=== PATIENT | male | born 2005 | race Caucasian/White ===

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

== ENCOUNTER 2025-07-07 09:25 | Emergency (ER) | payer BC, SELFPAY ==
[2025-07-07] VITALS (7 sets, daily range): BP systolic 99–120; BP diastolic 59–82; PULSE 64–98; RESP 17–20; TEMP 36.7; O2SAT 98–100
--- NOTE | ~2025-07-07 | XR_ITS ---
EXAMINATION: XR chest 2V 07/07/2025 10:41 INDICATION: Syncope PROCEDURE: 2 view chest COMPARISON: No prior studies for comparison. FINDINGS: The lungs are clear. The cardiomediastinal silhouette is within normal limits. There are no pleural effusions. There is no pneumothorax suspected. IMPRESSION: 1: NO ACUTE CARDIOPULMONARY DISEASE. Reviewed, dictated and finalized at location O.
--- NOTE | ~2025-07-07 | CT_ITS ---
EXAMINATION: CT BRAIN W/O DATE: 07/07/2025 10:29 INDICATION: Head injury. TECHNIQUE: Computed tomography (CT) of the head was performed without intravenous contrast. The dose-length product was 681.00 mGy-cm. Automated exposure control and iterative reconstruction technique were employed. COMPARISON: No prior studies for comparison. FINDINGS: Normal brain parenchymal volume for age. Normal dubose-white differentiation. No acute intracranial hemorrhage, infarction, mass or mass effect. No ventriculomegaly or midline shift. Midline sagittal images demonstrate a normal corpus callosum, craniovertebral junction and sella turcica. Basilar cisterns are patent. Paranasal sinuses and mastoids are pneumatized. No depressed skull fractures. IMPRESSION: 1. No acute intracranial abnormality. Reviewed, dictated and finalized at location O.
--- NOTE | 2025-07-07 09:34 | ECG_ITS ---
Test Date: 2025-07-07 09:41:07 Measurements Intervals [place] Rate: 72 P: 57 AK: 146 QRS: 84 QRSD: 92 T: 56 QT: 346 QTc: 379 Interpretive Statements SINUS RHYTHM WITH SINUS ARRHYTHMIA INCOMPLETE RIGHT BUNDLE BRANCH BLOCK BORDERLINE ECG No previous ECG available for comparison Electronically Signed On 07-07-2025 15:09:05 CDT by Luís Winter D.O.
[2025-07-07 09:52] LABS: Hematocrit 46.8 % (42.0-52.0); Hemoglobin 16.6 g/dL (14.0-18.0); Immature Granulocyte Percent A 0.5 % (0-0.5); Lymphocytes Absolute Auto 1.86 K/mm3 (0.9-3.2); Mean Corpuscular HGB Conc 35.5 g/dl (32-36); Mean Corpuscular Hemoglobin 30.0 pg (26-34); Mean Corpuscular Volume 84.5 fl (80-100); Nucleated Red Blood Cells Absolute Auto 0.000 K/mm3 (0.0-0.012); Nucleated Red Blood Cells Perc 0.0 % (0.0-0.2); Platelet Count Result 229 k/mm3 (150-375); Red Blood Count 5.54 M/mm3 (4.6-6.20); White Blood Count 7.4 K/mm3 (4.5-10.0)
[2025-07-07 10:06] LABS: Alanine Aminotransferase 28 U/L (6-50); Albumin Level 4.8 g/dL (3.5-5.1); Alkaline Phosphatase 94 U/L (38-126); Anion Gap 9 mmol/L (4-12); Aspartate Amino Transferase 32 U/L (17-59); Bilirubin,Total 0.9 mg/dL (0.2-1.3); Blood Urea Nitrogen 13 mg/dL (9-20); Calcium 9.9 mg/dL (8.4-10.2); Carbon Dioxide 25 mmol/L (22-30); Chloride 103 mmol/L (98-107); Estimated CRCL calculation 99 ml/min; Estimated Glomerular Filt Rate > 60; Glucose 107 mg/dL (65-110); Potassium 3.9 mmol/L (3.4-5.0); Sodium 137 mmol/L (137-145); Total Protein 7.7 g/dL (6.3-8.2)
--- OUTSIDE RECORDS SUMMARY | 2025-07-07 10:10 | XMS_ITS | Clinical Summary ---
Author Organization [facility] Address [address] [place] [address] Care Team Providers Care Commercial Instructor Supervisor Name Role Phone Shoaib Funez MD Primary Care Provider [phone] Allergies Active Allergy Reactions Criticality Noted Date Comments Fluoxetine Other (see comment) 07/21/2022 Suicidal ideation Medications No known medications Active Problems Problem Noted Date Diagnosed Date ADHD (attention deficit hype ractivity disorder), inattentive type 09/11/2019 Overview (07/21/2022): 09/11/19 Metadate CD 20 mg po q AM, RTC 1 month 10/25/19 Metadate CD 30 mg po q AM, RTC 3 month 11/27/2019 Concerta 36 mg po q AM, RTC 3 months (changed due to formulary coverage) 03/31/2020 Concerta 36 mg po q AM, RTC 3 months Immunizations Immunization Administration Dates Next Due Dtap (Acel-Immune) 09/22/2009, 6,2005,2005,2004 HPV GARDASIL 9-VALENT 06/29/2018 Hepatitis A (Generic) 08/10/2006,01/31/2006 Hepatitis B 2005,2005,2005 ,2005 Hib (Generic) 05/09/2006,2005,2005 ,2005 Influenza (Generic) 08/02/2011, 0,08/15/2010,11/21/2006,2004 MMR (MMRII) 08/02/2011,01/31/2006 Meningococcal (MenQuadfi) 07/26/2023 Meningococcal (Menactra) 06/24/2017 Pneumococcal (Prevnar 13) 05/09/2006,2005, 2005,2005 Polio Opv (Generic) 08/02/2011,2005,2004,2005 Tdap (Generic) 04/05/2017 Varicella (Varivax) 09/22/2009,01/31/2006 Family History Medical History Relation Comments Hypertension Maternal Grandmother Cancer Mother Relation Status Comments Maternal Grandmother Mother Social History Tobacco Use Types Packs/Day Years Used Date Smoking Tobacco: Never Passive Smoke Exposure: Never Smokeless Tobacco: Never Tobacco Cessation:Counseling Given: No PHQ-2 Answer Date Recorded Patient Health Questionnaire-2 Score 3 06/23/2023 Sex and Gender Information Value Date Recorded Sex Assigned at Not on file Legal Sex Male 4:49 PM CDT Gender Identity Not on file Sexual Orientation Not on file Last Filed Vital Signs Vital Sign Reading Time Taken Comments Blood Pressure 129/76 10/27/2023 3:07 PM [employer] DEVELOPER Pulse 80 10/27/2023 3:07 PM [employer] DEVELOPER Temperature 36.7 C (98.1 F) 10/27/2023 3:07 PM [employer] C DEVELOPER Respiratory Rate 16 10/27/2023 3:07 PM [employer] DEVELOPER Oxygen Saturation 99% 10/27/2023 3:07 PM [employer] C DEVELOPER Inhaled Oxygen Concentration - - Weight 64.4 kg (142 lb) 10/27/2023 3:07 PM [employer] DEVELOPER Height 170.8 cm (5' 7.25) 10/27/2023 3:07 PM CS T Body Mass Index 22.08 10/27/2023 3:07 PM [employer] C DEVELOPER Plan of Treatment Health Maintenance Due Date Last Done Comments HPV Vaccines (2 - Male 2-dose series) 12/30/2018 06/29/2018 Meningococcal B Vaccine (1 of 2 - Standard) 2021 Annual Physical 06/23/2024 06/23/2023 COVID-19 Vaccine (1 - season) 2024 PHQ-2 (Physician Heaters) 11/14/2024 06/23/2023 DTaP, Tdap and Td Vaccines (7 - Td or Tdap) 04/05/2027 04/05/2017, 09/22/2009, 05/09/2006, Additional history exists Hepatitis C 06/23/2053 Postponed from 2023 (Patient Refused) Hepatitis B Vaccines Completed 2005, 2005, 2005, Additional history exists Pneumococcal Vaccine: Pediatrics (0 to 5 Years) and At-Risk Patients (6 to 49 Years) Completed 05/09/2006, 2005, 2005, Additional history exists Meningococcal Vaccine Completed 07/26/2023, 017 RSV Immunizations Under 20 Months Aged Out No longer eligible based on patient's age to complete this topic Insurance Care Teams Commercial Instructor Supervisor Relationship Specialty Start Date End Date Shoaib Funez MD [address] [place] [id number] PCP - General FAMILY PRACTICE 07/16/22
[2025-07-07] MEDS: SODIUM CHLORIDE 0.9% IV 1,000 ML 999 ML IV CONT ×2 (10:19→12:26)
--- NOTE | 2025-07-07 10:23 | PC.NURSE ---
PT to imaging via stretcher on tele and O2 monitor
[2025-07-07 10:32] LABS: Magnesium 1.7 mg/dL (1.6-2.3)
--- NOTE | 2025-07-07 10:39 | ED_ITS ---
HPI - General Adult General Chief complaint: Syncope Stated complaint: SYNCOPAL EVENT WHILE IN SHOWER Time Seen by Provider: 07/07/25 09:59 History of Present Illness HPI narrative: Patient 20-year-old gentleman who presents emergency department chief complaint of syncopal episode patient reports he was in the shower taking a hot shower started to get lightheaded slid down the wall and hit his head against the shower head the patient reports he had 4 episodes nausea vomiting afterwards reports that he has little headache afterwards patient reports no chest pain no shortness of breath no palpitations Related Data Home Medications ?Medication ?Instructions ?Recorded ?Confirmed ?Last Taken ?Type fluoxetine 10 mg tablet mg 01/22/22 Unknown History Allergies Allergy/AdvReac Type Severity Reaction Status Date / Time No Known Allergies Allergy Verified 07/07/25 09:26 Review of Systems 2 Review of Systems: A 10 system review of systems was completed on the patient and is negative except for what is stated in the HPI. Nursing and ancillary documentation was reviewed. PMFSH Past Medical History Medical History Depression Concussion Surgical History Surgical History Hx of appendectomy Social History Social History Smoking status: Never smoker Alcohol intake: never Substance use: never Substance use type: does not use Living arrangements: with family Occupation/Education: student Exam 2 Narrative: GENERAL: Well-appearing, well-nourished, and in no acute distress. HEAD: Normocephalic, atraumatic. EYES: PERRLA and EOMI. ENT: Nares clear, no rhinorrhea or epistaxis. Mucous membranes moist. NECK: Supple. CHEST: Clear to auscultation. No respiratory distress. HEART: Regular rate and rhythm. No murmur heard. Normal peripheral pulses. ABDOMEN: Soft, nontender, nondistended, normal active bowel sounds. EXTREMITIES: Normal range of motion. No edema. SKIN: Warm, dry, no rash. NEURO: No focal deficits. Alert and oriented x3. PSYCH: Normal mood and affect. Course Vital Signs Vital signs: Vital Signs Temperature 36.7 C 07/07/25 09:34 Pulse Rate 98 08/24/25 09:34 Respiratory Rate 18 07/07/25 09:34 Blood Pressure 120/82 07/07/25 09:34 Pulse Oximetry 98 07/07/25 09:34 Oxygen Delivery Room Air 07/07/25 09:34 Temperature 36.7 C 07/07/25 09:34 Pulse Rate 74 07/07/25 12:54 Respiratory Rate 17 07/07/25 12:54 Blood Pressure 120/78 07/07/25 12:54 Pulse Oximetry 100 07/07/25 12:54 Oxygen Delivery Room Air 07/07/25 09:34 Medical Decision Making MDM Narrative Medical decision making narrative: Differential diagnosis includes vasovagal syncope, dysrhythmia, dehydration, infection, electrolyte abnormality Laboratory studies were obtained on the patient showed a normal CBC CMP showed no acute abnormalities urinalysis showed no acute abnormality Is the patient having multiple episodes of nausea vomiting after the head injury and syncope CT head was obtained that showed no evidence of acute intracranial pathology chest x-ray showed no focal findings an EKG showed no dysrhythmia Vital Signs Vital Signs: Vital Signs Temperature 36.7 C 07/07/25 09:34 Pulse Rate 98 07/07/25 09:34 Respiratory Rate 18 07/07/25 09:34 Blood Pressure 120/82 07/07/25 09:34 Pulse Oximetry 98 07/07/25 09:34 Oxygen Delivery Room Air 07/07/25 09:34 Temperature 36.7 C 07/07/25 09:34 Pulse Rate 74 07/07/25 12:54 Respiratory Rate 17 07/07/25 12:54 Blood Pressure 120/78 07/07/25 12:54 Pulse Oximetry 100 07/07/25 12:54 Oxygen Delivery Room Air 07/07/25 09:34 Lab Data 07/07/25 09:46 07/07/25 09:46 Labs: Lab Results 07/07/25 07/07/25 07/07/25 Range/Units 09:45 09:46 12:10 WBC 7.4 (4.5-10.0) K/mm3 RBC 5.54 (4.6-6.20) M/mm3 Hgb 16.6 (14.0-18.0) g/dL Hct 46.8 (42.0-52.0) % MCV 84.5 (80-100) fl MCH 30.0 (26-34) pg MCHC 35.5 (32-36) g/dl RDW 11.8 (11.5-14.5) % Plt Count 229 (150-375) k/mm3 MPV 10.7 H (7.4-10.4) fl Immature Gran % (Auto) 0.5 (0-0.5) % Neut % (Auto) 63.5 (45.5-73.1) % Lymph % (Auto) 25.0 (18.3-44.2) % [place] % (Auto) 9.4 H (2.6-8.5) % Eos % (Auto) 1.1 (0-4.4) % Baso % (Auto) 0.5 (0.2-1.2) % Lymph # (Auto) 1.86 (0.9-3.2) K/mm3 [place] # (Auto) 0.7 H (0.1-0.6) K/mm3 Eos # (Auto) 0.1 (0-0.3) K/mm3 Baso # (Auto) 0.0 (0.0-0.1) K/mm3 Abs Immat Gran (auto) 0.04 H (0.00-0.031) K/mm3 Absolute Neuts (auto) 4.7 (1.3-6.7) K/mm3 Absolute Nucleated RBC 0.000 (0.0-0.012) K/mm3 Nucleated RBC % 0.0 (0.0-0.2) % Sodium 137 (137-145) mmol/L Potassium 3.9 (3.4-5.0) mmol/L Chloride 103 (98-107) mmol/L Carbon Dioxide 25 (22-30) mmol/L Anion Gap 9 (4-12) mmol/L BUN 13 (9-20) mg/dL Creatinine 0.87 (0.7-1.3) mg/dL Estim Creat Clear Calc 99 ml/min Estimated GFR > 60 (59 - ) Glucose 107 (65-110) mg/dL Calcium 9.9 (8.4-10.2) mg/dL Magnesium 1.7 (1.6-2.3) mg/dL Total Bilirubin 0.9 (0.2-1.3) mg/dL AST 32 (17-59) U/L ALT 28 (6-50) U/L Alkaline Phosphatase 94 (38-126) U/L Total Protein 7.7 (6.3-8.2) g/dL Albumin 4.8 (3.5-5.1) g/dL Urine Color Yellow (Yellow) Urine Appearance Clear (Clear) Urine pH 7.0 (5.0-9.0) Ur Specific [place] 1.010 (1.001-1.035) Urine Protein Negative (Negative) mg/dL Urine Glucose (UA) Negative (Negative) mg/dL Urine Ketones Negative (Negative) mg/dL Ur Blood (Man) Negative (Negative) Urine Nitrate Negative (Negative) Urine Bilirubin Negative (Negative) Urine Urobilinogen 0.2 (<2.0) mg/dL Leukocyte Esterase Rfl Negative (Negative) TERRY/UL Discharge Plan Discharge Clinical Impression: Vasovagal syncope Patient Disposition: Home Condition: Stable Instructions: Antibiotic Form, Syncope (ED) Patient Language: Iraqi Prescriptions: No Action fluoxetine 10 mg tablet Follow-up/Referrals: Dee Dee,Shoaib Jarquin MD [Primary Care Provider] Stand Alone Forms: Work/School Release IP Time of Disposition: 13:05
[2025-07-07] MEDS: MAGNESIUM SULF 1 GM/D5W 100 ML 1 GM/100 ML BAG IVPB (11:03)
--- NOTE | 2025-07-07 11:06 | PC.NURSE ---
Rn escorted pt to bathroom via wheelchair, pt unable to urinate at this time
[2025-07-07 12:22] LABS: Add Urine Microscopic? NO; Appearance Urine Clear (Clear); Glucose Urine UA Negative (Negative); Leukocyte Esterase Ur Negative LEU/UL (Negative); Nitrate Urine Negative (Negative); Specific Grav Ur 1.010 (1.001-1.035)
== END 2025-07-07 13:10 | disposition home or self-care (01) ==
PROVIDERS: Emergency Medicine; Emergency Provider Emergency Medicine; PCP Family Medicine Sports Medicine
DX: R55 Syncope and collapse (principal); F32.A Depression, unspecified; I45.10 Unspecified right bundle-branch block
CPT/HCPCS: 36415; 70450; 71046; 80053; 81003; 83735; 85025; 93005; 96361; 96365; 99284; J3475; J7030